=== PATIENT | female | born 1950 | race Caucasian/White ===

== ENCOUNTER → 2017-10-09 | Outpatient (CLI) | payer MEDICARE, OTHER | END | disposition home or self-care (01) | LOC: HKI 13:28 | DX: Z09 Encounter for follow-up examination after completed treatment for conditions other than malignant neoplasm (principal); M25.561 Pain in right knee; Z96.651 Presence of right artificial knee joint | CPT/HCPCS: 73560; 73560-RT ==

== ENCOUNTER → 2017-11-13 | Outpatient (CLI) | payer MEDICARE, OTHER | END | disposition home or self-care (01) | LOC: HKI 11:06 | DX: M25.461 Effusion, right knee (principal); M25.561 Pain in right knee; Z96.651 Presence of right artificial knee joint | CPT/HCPCS: 20610; 73562-LT ==

== ENCOUNTER → 2018-01-22 | Outpatient (CLI) | payer MEDICARE, OTHER | END | disposition home or self-care (01) | LOC: HKI 11:01 | DX: M25.561 Pain in right knee (principal); R22.41 Localized swelling, mass and lump, right lower limb; Z96.651 Presence of right artificial knee joint | CPT/HCPCS: G0463 ==